=== PATIENT | female | born 1965 | race Caucasian/White ===

== ENCOUNTER → 2018-10-05 08:07 | Outpatient (CLI) | payer MEDICAID | END | disposition home or self-care (01) | LOC: D.OPS 10-03 08:00 | DX: K44.9 Diaphragmatic hernia without obstruction or gangrene (principal) ==

== ENCOUNTER 2018-11-06 06:05 | Day surgery (SDC) | payer MEDICAID ==
[2018-11-03 11:22] LABS: HEMATOCRIT 36.5 % (36.0-48.0); HEMOGLOBIN 11.8 g/dL (12-16); MCH 30.6 pg (26.0-34.0); MCHC 32.3 g/dL (31.0-37.0); MCV 94.8 fL (80.0-100.0); MEAN PLATELET VOLUME 9.5 fL (7.4-10.4); RBC 3.85 10x6/uL (4.00-5.40); RDW 12.9 % (11.5-14.5); WBC 6.8 10x3/uL (4.8-10.8)
[2018-11-06] VITALS (15 sets, daily range): BP systolic 119–153; BP diastolic 63–82; Ht 175.3 cm; Wt 86.4 kg
[~2018-11-06] VITALS: Ht 175.3 cm; Wt 86.4 kg
[~2018-11-06 06:05] MED LIST: CYCLOBENZAPRINE10 MG PO; LISINOPRIL10 MG PO; MIRALAX17 GM PO; NEURONTIN600 MG PO; PHENERGAN25 M1 PO; PRAVASTATIN SOD10 MG PO; TRAZODONE HCL150 MG PO; ULTRAM50 MG PO
[2018-11-06 07:07] LABS: HCG SERUM NEGATIVE (NEGATIVE)
--- NOTE | 2018-11-06 11:10 | NUR ---
PT TRANSPORTED TO ROOM VIA BED FROM PROCEDURE. FAMILY IS AT BEDSIDE. SEE FLOWSHEET FOR VITALS. LAP SITES TO ABDOMEN X 6. UMBILICAL SITE IS BLEEDING. REINFORCED WITH GAUZE AND TAPE. PT IS RESTING IN BED WITH EYES CLOSED. RESPIRATIONS ARE EVEN AND UNLABORED. PT IS AROUSABLE WITH VERBAL STIMULATION. PT FAMILY ANSWERS ALL QUESTIONS APPROPRIATELY. BED IS IN THE LOWEST POSITION. CALL LIGHT AND BEDSIDE TABLE ARE WITHIN REACH. BED ALARM IS ON AND WORKING. PT AND PT FAMILY DENY FURTHER NEEDS AT THIS TIME. WILL CONT TO MONITOR.
[2018-11-07 01:16] VITALS: BP 104/49
[2018-11-07 05:12] VITALS: BP 120/64
[2018-11-07 05:50] LABS: BASOPHILS 0 % (0-2); EOSINOPHILS 0 % (0-7); HEMATOCRIT 33.3 % (36.0-48.0); HEMOGLOBIN 10.7 g/dL (12-16); IMMATURE GRANULOCYTES 0.2 % (0-5); LYMPHOCYTES 7.8 % (15-50); MCH 30.3 pg (26.0-34.0); MCHC 32.1 g/dL (31.0-37.0); MCV 94.3 fL (80.0-100.0); MEAN PLATELET VOLUME 9.7 fL (7.4-10.4); MONOCYTES 6.8 % (2-11); NEUTROPHILS 85.2 % (40-80); PLATELET COUNT 217 10x3/uL (130-400); RBC 3.53 10x6/uL (4.00-5.40); RDW 13.1 % (11.5-14.5); WBC 12.4 10x3/uL (4.8-10.8)
[2018-11-07 06:28] LABS: ALKALINE PHOSPHATASE 56 U/L (46-116); ALT (SGPT) 67 U/L (10-68); BILIRUBIN - TOTAL 0.26 mg/dL (0.2-1.3); CALC OSMOLALITY 281 mosm/kg (275-300); CALCIUM 8.2 mg/dL (8.5-10.1); CARBON DIOXIDE 28.3 mmol/L (21.0-32.0); CHLORIDE - SERUM 102 mmol/L (98-107); CREATININE - SERUM 0.8 mg/dL (0.6-1.3); POTASSIUM - SERUM 4.1 mmol/L (3.5-5.1); PROTEIN - SERUM 6.6 g/dL (6.4-8.2); SODIUM 141 mmol/L (136-145); UREA NITROGEN 15 mg/dL (7-18); eGFR NON AFRICAN AMERICAN 79 mL/min (90-120)
[2018-11-07 06:29] LABS: GLUCOSE 106 mg/dL (74-106)
[2018-11-07] MEDS ORDERED: HYDROCODON-ACE1 EAC7 PO (08:53)
[2018-11-07 09:38] VITALS: BP 150/74
--- NOTE | 2018-11-07 10:02 | NUR ---
PT ALERT X 4. BREATH SOUNDS CLEAR BILAT. LAP SITES TO ABDOMEN, WELL APPROXIMATED. PT REPORTING PAIN OF 6/10, SUPERVISING CHEF IN PLACE, WILL MONITOR. IV TO LEFT AC, PATENT, DRESSING CLEAN DRY AND INTACT. FAMILY AT BEDSIDE. BED LOW, CALL LIGHT IN REACH. NO OTHER NEEDS AT THIS TIME.
[2018-11-07 14:22] VITALS: BP 138/66
--- NOTE | 2018-11-07 14:54 | NUR ---
DISCHARGE PAPERWORK SIGNED, ALL QUESTIONS ANSWERED. IV TO LEFT AC DC'D TIP INTACT.
--- NOTE | 2018-11-07 15:33 | NUR ---
PT ESCORTED OUT BY WHEELCHAIR
== END 2018-11-07 15:34 | disposition home or self-care (01) ==
LOC: D.OPS 06:05 → D.PAN 08:00 → D.OPS 08:00 → D.MS 10:48 → D.OPS 11-07 15:34
PROVIDERS: Anesthesiology; ATTEND Surgery
DX: K44.9 Diaphragmatic hernia without obstruction or gangrene (principal); K21.9 Gastro-esophageal reflux disease without esophagitis; I10 Essential (primary) hypertension; F17.200 Nicotine dependence, unspecified, uncomplicated; R13.10 Dysphagia, unspecified; Z79.899 Other long term (current) drug therapy; Z01.812 Encounter for preprocedural laboratory examination

== ENCOUNTER → 2019-05-04 08:40 | Outpatient (CLI) | payer MEDICAID ==
[2018-11-06 11:15] VITALS: BMI 28.1
[~2019-05-04 08:40] MED LIST changes: +HYDROCODON-ACE1 EAC7 PO; +OMEPRAZOLE40 MG PO
== END | disposition home or self-care (01) ==
LOC: D.RAD 08:40
PROVIDERS: ATTEND Surgery
DX: R13.10 Dysphagia, unspecified (principal)

== ENCOUNTER 2019-05-09 06:21 | Day surgery (SDC) | payer MEDICAID ==
[~2019-05-09] VITALS: Ht 175.3 cm; Wt 75.9 kg
[~2019-05-09 06:21] MED LIST changes: -OMEPRAZOLE40 MG PO
[2019-05-09 07:05] LABS: CALC OSMOLALITY 289 mosm/kg (275-300); CALCIUM 8.4 mg/dL (8.5-10.1); CARBON DIOXIDE 33.5 mmol/L (21.0-32.0); CHLORIDE - SERUM 109 mmol/L (98-107); CREATININE - SERUM 0.8 mg/dL (0.6-1.3); GLUCOSE 108 mg/dL (74-106); HEMATOCRIT 34.6 % (36.0-48.0); HEMOGLOBIN 11.2 g/dL (12-16); MCH 30.4 pg (26.0-34.0); MCHC 32.4 g/dL (31.0-37.0); MCV 93.8 fL (80.0-100.0); MEAN PLATELET VOLUME 10.8 fL (7.4-10.4); POTASSIUM - SERUM 3.7 mmol/L (3.5-5.1); RBC 3.69 10x6/uL (4.00-5.40); RDW 13.9 % (11.5-14.5); SODIUM 146 mmol/L (136-145); UREA NITROGEN 7 mg/dL (7-18); WBC 4.8 10x3/uL (4.8-10.8); eGFR NON AFRICAN AMERICAN 79 mL/min (90-120)
[2019-05-09] MEDS ORDERED: OMEPRAZOLE40 MG PO (07:06)
[2019-05-09 07:13] VITALS: BP 166/87; Ht 175.3 cm; Wt 75.9 kg
[2019-05-09 07:24] LABS: HCG SERUM NEGATIVE (NEGATIVE)
--- NOTE | 2019-05-09 10:01 | NUR ---
DC INSTRUCTIONS GIVEN TO PT. STATES UNDERSTANDING. DC'D IV CATH FULLY INTACT.
--- NOTE | 2019-05-09 10:20 | NUR ---
PT LEFT UNIT VIA WC AT 1020
--- NOTE | 2019-05-09 16:00 | OP ---
PATIENT NAME: KATHERINE CHIU MEDICAL RECORD: [id number] :63 LOCATION:D[facility] ADMISSION DATE: SURGEON: RAMONA COULTER MD DATE OF OPERATION: 05/09/2019 SURGEON: Ramona Coulter MD PREOPERATIVE DIAGNOSES: 1. Dysphagia. 2. History of laparoscopic Monae fundoplication. POSTOPERATIVE DIAGNOSES: 1. Dysphagia,. 2. History of laparoscopic Monae fundoplication. 3. Gastroparesis. PROCEDURE PERFORMED: Esophagogastroduodenoscopy. ANESTHESIA: Total intravenous anesthesia. COMPLICATIONS: None. SPECIMENS: None. OPERATIVE COURSE: After consent was obtained, the patient was taken to the endoscopy suite. A timeout was taken to confirm the correct patient and procedure. Hurricaine [place] was administered. A bite block was placed. The patient was placed in left lateral decubitus position. Thereafter, total intravenous anesthesia was given. The gastroscope was inserted through the bite block and passed posterior to the epiglottis under endoscopic vision. The scope was advanced to the esophagus and to the GE junction. A small hiatal hernia was noted. There was some retained food and fluid just above the fundoplication, which was irrigated and suctioned. The scope was easily traversed without tension across the area of the fundoplication and the stomach was a [id number] quantity of retained food, pills, and fluid concerning for gastroparesis. The stomach was copiously irrigated and suctioned, trying to clear the food and debris from the stomach. The scope was retroflexed. The fundoplication appeared intact without tension. The scope was advanced through the pylorus into the first portion of the duodenum. The duodenum appeared within normal limits. The pylorus was difficult to traverse due to minimal relaxation. At this time, the scope was withdrawn into the stomach body. Again, there was still significant debris obscuring full evaluation of the stomach. At this time, the scope was withdrawn through the area of the fundoplication. Scope was slowly withdrawn through the esophagus. At this time, the scope was removed and the procedure was terminated. The patient tolerated procedure well and there were no complications occurred. The patient was transferred to the recovery room in satisfactory condition. TRANSINT:[id number] Voice Confirmation ID: [id number] DOCUMENT ID: [id number] OPERATIVE REPORT [id number] KATHERINE CHIU RAMONA COULTER MD at 1600 CC: [id number] DICTATION DATE: 05/09/19926 DEPUTY CHIEF SHERIFF: 05/09/19 1535 [facility] 05/09/19 [id number] [place] [address]
== END 2019-05-09 10:20 | disposition home or self-care (01) ==
LOC: D.OPS 06:21
PROVIDERS: Anesthesiology; ATTEND Surgery
DX: R13.10 Dysphagia, unspecified (principal); K31.84 Gastroparesis

== ENCOUNTER → 2019-06-12 11:14 | Outpatient (CLI) | payer MEDICAID ==
[2019-05-09 07:13] VITALS: BMI 24.7
[~2019-06-12 11:14] MED LIST changes: +OMEPRAZOLE40 MG PO
== END | disposition home or self-care (01) ==
LOC: D.NM 11:14
PROVIDERS: ATTEND Surgery
DX: K44.9 Diaphragmatic hernia without obstruction or gangrene (principal)

== ENCOUNTER 2019-06-25 06:51 | Inpatient (IN) | payer MEDICAID ==
[~2019-06-25] VITALS: Ht 175.3 cm; Wt 74.1 kg
[2019-06-26] MEDS ORDERED: ULTRAM50 MG PO (09:03)
[2019-06-27 05:54] LABS: HEMATOCRIT 41.9 % (36.0-48.0); HEMOGLOBIN 13.3 g/dL (12-16); MCH 31.3 pg (26.0-34.0); MCHC 31.7 g/dL (31.0-37.0); MCV 98.6 fL (80.0-100.0); RBC 4.25 10x6/uL (4.00-5.40); RDW 13.3 % (11.5-14.5); WBC 6.3 10x3/uL (4.8-10.8)
[2019-06-27 07:00] VITALS: BP 149/80; BMI 25.0
[2019-06-27 08:38] LABS: HCG SERUM NEGATIVE (NEGATIVE)
[2019-06-27 10:46] VITALS: BP 159/69
[2019-06-27 10:51] VITALS: BP 154/78; Ht 175.3 cm; Wt 74.1 kg
--- NOTE | 2019-06-27 11:29 | OP ---
PATIENT NAME: KATHERINE CHIU MEDICAL RECORD: [id number] :63 LOCATION:D[id number] ADMISSION DATE: SURGEON: RAMONA COULTER MD DATE OF OPERATION: 06/27/2019 SURGEON: Ramona Coulter MD PREOPERATIVE DIAGNOSES: 1. Gastroparesis. 2. Intractable nausea and vomiting. POSTOPERATIVE DIAGNOSES: 1. Gastroparesis. 2. Intractable nausea and vomiting. SURGEON: Ramona Coulter MD PROCEDURE: Laparoscopic gastrojejunostomy and esophagogastroduodenoscopy. ANESTHESIA: General. COMPLICATIONS: None. SPECIMENS: None. Case was clean contaminated. OPERATIVE COURSE: After consent was obtained, the patient was taken to the operating room and placed in the supine position on the operating table. Next, general anesthesia was given via endotracheal intubation. After a timeout was performed to confirm the correct patient and procedure, the abdomen was prepped and draped in typical sterile fashion. Local anesthetic was injected just above the umbilicus. A stab incision was made with 11-blade scalpel. Using a 5-mm bladeless optical trocar, the abdomen was entered under direct laparoscopic vision. Adequate pneumoperitoneum was achieved. The abdominal cavity was inspected. There was no evidence of bile injury, no evidence of bleeding. Two additional trocars were then placed, 12-mm trocar and a 5-mm trocar into the right lateral quadrant under direct laparoscopic vision. The greater omentum was retracted cephalad exposing the transverse colon and the transverse mesocolon. The transverse mesocolon was grasped and retracted cephalad to allow for identification of the ligament of Treitz ligament. The small bowel was run from the ligament of Treitz approximately 40 cm, at which time a loop of proximal jejunum was delivered in an antecolic fashion to the transverse colon. At this time, seromuscular bites were taken from the small bowel to the stomach using a 3-0 Stratafix suture, creating a back wall outer layer of suture. At this time, an enterotomy was made in the small bowel. A gastrotomy was made in the stomach just to the suture line. Using a linear 75-mm IVÁN stapler with green loads, a gastrojejunostomy was created. The lumen was widely patent. At this time, the common enterotomy was closed in 2 layers. The inner layer was closed with a 3-0 Stratafix PDS suture. The suture line was then imbricated using 3-0 Vicryl suture. To test the patency of the anastomosis, the EGD was then performed by myself. Scope was inserted into the mouth and into the posterior oropharynx under direct endoscopic vision, it was advanced to the esophagus. At the area of previous Monae fundoplication, the GE junction was narrowed, but the scope was traversed without resistance. The scope was OPERATIVE REPORT [id number] KATHERINE CHIU retroflexed. The Monae appeared intact. The stomach was insufflated. There was a large quantity of retained food. The scope was advanced into the stomach body. The scope was easily traversed across the gastrojejunostomy. An air leak test was performed using water. There was no evidence of leak intraabdominally with water and endoluminal insufflation. At this time, the stomach was desufflated. The scope was slowly withdrawn and removed without complication. I scrubbed back into the operating room table. Prior to this, the abdomen was copiously irrigated and suctioned. All remaining instruments were removed. The 12-mm trocar site was closed with 0 Vicryl suture and a Robert-Franck suture passer under direct laparoscopic vision. At this time, the abdomen was desufflated. Remaining trocars were removed. Skin was closed with 4-0 Monocryl, Mastisol and Steri-Strips. At the end of the case, all needle and instrument counts were correct. No complications occurred. The patient was extubated and transferred to the PACU in stable condition. TRANSINT:[id number] Voice Confirmation ID: [id number] DOCUMENT ID: [id number] RAMONA COULTER MD at 1129 CC: [id number] DICTATION DATE: 06/27/19 1000 [employer] OPERATOR: 06/27/19 1017 [facility] [address] [id number]
[2019-06-27 12:26] VITALS: BP 85/64
[2019-06-27 16:22] VITALS: BP 111/58
[2019-06-27 19:30] VITALS: BP 131/71
--- NOTE | 2019-06-27 23:00 | NUR ---
A&O X 4. INCISIONS TO ABDOMEN C/D/I. PT AMBULATING IN ROOM, STAND BY ASSIST. DENIES NEEDS AT THIS TIME. CONTINUE PLAN OF CARE.
[2019-06-28 00:30] VITALS: BP 128/70
--- NOTE | 2019-06-28 04:09 | NUR ---
I have reviewed this patient and I concur with the Shift Assessment completed by the Licensed Practical Nurse today this shift.
[2019-06-28 04:30] VITALS: BP 149/78
[2019-06-28 07:14] LABS: ALBUMIN 2.8 g/dL (3.4-5.0); ANION GAP 7.4 mmol/L (8-16); BILIRUBIN - TOTAL 0.3 mg/dL (0.2-1.3); CALCIUM 8.1 mg/dL (8.5-10.1); CARBON DIOXIDE 28.1 mmol/L (21.0-32.0); CREATININE - SERUM 0.9 mg/dL (0.6-1.3); POTASSIUM - SERUM 3.5 mmol/L (3.5-5.1)
[2019-06-28 07:41] LABS: BASOPHILS 0.2 % (0-2); HEMATOCRIT 34.7 % (36.0-48.0); HEMOGLOBIN 10.9 g/dL (12-16); IMMATURE GRANULOCYTES 0.2 % (0-5); LYMPHOCYTES 11.2 % (15-50); MCH 31.1 pg (26.0-34.0); MCHC 31.4 g/dL (31.0-37.0); MCV 99.1 fL (80.0-100.0); MEAN PLATELET VOLUME 11.1 fL (7.4-10.4); MONOCYTES 6.6 % (2-11); NEUTROPHILS 80.8 % (40-80); PLATELET COUNT 154 10x3/uL (130-400); RDW 13.5 % (11.5-14.5)
[2019-06-28 07:44] LABS: WBC 13.1 10x3/uL (4.8-10.8)
[2019-06-28 09:02] VITALS: BP 156/75
[2019-06-28] MEDS ORDERED: HYDROCODON-ACE1 EAC7 PO (09:06)
[2019-06-28 13:07] VITALS: BP 137/76
--- NOTE | 2019-06-28 14:42 | NUR ---
DC HOME AT THIS TIME WITH NO DISTRES NOTED. RIGHT IJ DC AT THIS TIME WITH TIP INTACT. PRESSURE DRESSING PLACED. STABLE CONDITION UPON DEPARTURE.
== END 2019-06-28 14:46 | disposition home or self-care (01) | DRG 392 ==
LOC: D.MS 06-27 05:32 → D.OPS 06-27 05:32 → D.PAN 06-27 08:00 → EDSTATUS 06-27 08:00 → D.OPS 06-27 08:00 → D.MS 06-27 09:50 → D.OPS 06-27 10:06 → D.MS 06-27 10:06 → D.OPS 06-28 14:46 → D.MS 06-28 14:46
PROVIDERS: Anesthesiology; ADMIT Surgery; ATTEND Surgery
PROC: 0DHA3UZ Insertion of Feeding Device into Jejunum, Percutaneous Approach (ICD-10-PCS; principal; 2019-06-27 08:00)
DX: K31.84 Gastroparesis (principal); F17.200 Nicotine dependence, unspecified, uncomplicated; R13.10 Dysphagia, unspecified